=== PATIENT | female | born 1995 | race African-American/Black ===

== ENCOUNTER 2018-01-27 17:47 | Inpatient (IN) ==
[2018-01-27] MEDS ORDERED: MEPERIDINE 50 MG/1 ML VIAL IV PRN (18:54)
[2018-01-27] MEDS ORDERED: ONDANSETRON 4 MG/2 ML VIAL IV PRN (18:54)
[2018-01-27] MEDS ORDERED: AMPICILLIN INJ 2,000 MG in SODIUM CHLORIDE 0.9% 100 ML IV ONE (18:57)
[2018-01-27] MEDS: LACTATED RINGERS 1,000 ML IV SCH (19:20)
[2018-01-27 19:22] LABS: Basophils % 0.2 % (0.0-0.8); Eosinophils % 0.4 % (0.00-10.9); Hematocrit 32.8 VOL% (35.7-47.0); Hemoglobin 10.5 GM/DL (12.0-16.0); Immature Granulocytes % 1.3 %; Immature Granulocytes Absolute 0.11 #; Lymphocytes # 1.1 10*3/uL (1.4-4.0); Lymphocytes % 13.2 % (21.3-54.2); Mean Corpuscular Hemoglobin 30 PG (27-34); Mean Corpuscular Volume 93.2 FL (87-102); Monocytes # 0.6 10*3/uL (0.11-0.8); Monocytes % 7.1 % (1.7-12.7); Neutrophils # 6.4 10*3/uL (1.4-7.4); Neutrophils % 77.8 % (38.7-73.9); Platelet Count 243 T/CUMM (130-400); Red Blood Count 3.52 MC/CUMM (3.8-5.5); Red Cell Distribution Width 17.2 % (9.3-17.3); White Blood Count 8.2 T/CUMM (4-12)
[2018-01-27] MEDS: AMPICILLIN INJ 1,000 MG in SODIUM CHLORIDE 0.9% 100 ML IV SCH (23:41)
[2018-01-28] MEDS: BUTORPHANOL 2 MG/ML VIAL IV PRN ×2 (00:49→04:26)
[2018-01-28] MEDS: LACTATED RINGERS 1,000 ML IV SCH ×2 (00:56→08:36)
[2018-01-28] MEDS: AMPICILLIN INJ 1,000 MG in SODIUM CHLORIDE 0.9% 100 ML IV SCH ×3 (03:35→11:25)
[2018-01-28] MEDS ORDERED: OXYTOCIN/LR 20 UNIT/1,000 ML BAG IV SCH (06:00)
[2018-01-28] MEDS ORDERED: ONDANSETRON 4 MG/2 ML VIAL IV ONE (07:09)
[2018-01-28] MEDS ORDERED: CITRIC ACID/SODIUM CITRATE 30 ML UDCUP PO ONE (07:09)
[2018-01-28] MEDS ORDERED: hydrOXYzine HCL 25 MG/1 ML VIAL IM PRN (07:09)
[2018-01-28] MEDS ORDERED: FAMOTIDINE 20 MG/2 ML VIAL IV ONE (07:09)
[2018-01-28] MEDS ORDERED: diphenhydrAMINE 50 MG/1 ML VIAL IV PRN ×2 (07:09)
[2018-01-28] MEDS ORDERED: LACTATED RINGERS 1,000 ML IV ONE (07:09)
[2018-01-28] MEDS ORDERED: PROMETHAZINE 25 MG/1 ML VIAL IM ONE (07:09)
[2018-01-28] MEDS ORDERED: ePHEDrine 50 MG/ML AMP IV PRN (07:09)
[2018-01-28] MEDS ORDERED: fentaNYL 2 MCG/ROPIV 0.2% EPID 150 ML EPIDURAL SCH (07:30)
[2018-01-28 10:16] LABS: Apearance,Urine CLEAR (Clear); Bacteria,Urine Occasional /HPF (Few); Bilirubin,Urine Negative (Negative); Blood, Urine Negative (Negative); Glucose,Urine (UA) Negative (Negative); Ketones,Urine Negative (Negative); Mucus,Urine Occasional /LPF (Occasional); Nitrite,Urine Negative (Negative); Protein,Urine Negative; RBC,Urine 1 /HPF (0-4); Squamous Epithelial Cell,Urine Occasional /HPF (0-10); Urine Color Yellow (Yellow); Urine Specific Gravity 1.019 (1.001-1.035); Urine Urobilinogen < 2.0 EU/DL (0.2-1.0); WBC,Urine 2 /HPF (0-6)
[2018-01-28] MEDS ORDERED: miSOPROStol 200 MCG TABLET ONE (11:30)
[2018-01-28] MEDS ORDERED: LIDOCAINE 1% 50 ML VIAL ONE (11:30)
[2018-01-28] MEDS: oxyCODONE/ACETAMINOPHEN 5-325 MG TABLET PO PRN ×2 (16:05→22:54)
[2018-01-28] MEDS: IBUPROFEN 800 MG TABLET PO PRN ×2 (16:06→22:54)
[2018-01-29 05:36] LABS: Basophils % 0.5 % (0.0-0.8); Eosinophils # 0.1 10*3/uL (0.0-0.87); Eosinophils % 1.1 % (0.00-10.9); Hematocrit 27.2 VOL% (35.7-47.0); Hemoglobin 9.3 GM/DL (12.0-16.0); Immature Granulocytes Absolute 0.08 #; Lymphocytes # 1.6 10*3/uL (1.4-4.0); Lymphocytes % 18.7 % (21.3-54.2); Mean Corpuscular HGB Conc 34.2 GM/DL (32-36); Mean Corpuscular Hemoglobin 30 PG (27-34); Mean Corpuscular Volume 88.6 FL (87-102); Monocytes # 0.8 10*3/uL (0.11-0.8); Neutrophils # 5.8 10*3/uL (1.4-7.4); Neutrophils % 69.7 % (38.7-73.9); Platelet Count 209 T/CUMM (130-400); Red Blood Count 3.07 MC/CUMM (3.8-5.5); Red Cell Distribution Width 16.8 % (9.3-17.3); White Blood Count 8.3 T/CUMM (4-12)
[2018-01-29] MEDS: IBUPROFEN 800 MG TABLET PO PRN ×3 (07:34→23:49)
[2018-01-29] MEDS: oxyCODONE/ACETAMINOPHEN 5-325 MG TABLET PO PRN (07:35)
[2018-01-30 07:21] VITALS: BP 93/50
== END 2018-01-30 11:45 | disposition home or self-care (01) | DRG 560 ==
LOC: N.LDOUT 17:47 → N.LD 18:32 → N.OB 01-28 14:14
PROVIDERS: ADMIT Obstetrics & Gynecology; ATTEND Obstetrics & Gynecology